=== PATIENT | female | born 1975 | race African-American/Black ===

== ENCOUNTER → 2020-08-29 | Outpatient (CLI) | payer OTHER | LOC: COL.RAD 12:50 | DX: D25.9 Leiomyoma of uterus, unspecified (principal); N83.201 Unspecified ovarian cyst, right side ==

== ENCOUNTER → 2020-10-13 | Outpatient (CLI) | payer OTHER | LOC: MC.RAD 14:01 | DX: Z12.31 Encounter for screening mammogram for malignant neoplasm of breast (principal); R92.0 Mammographic microcalcification found on diagnostic imaging of breast ==

== ENCOUNTER → 2020-10-25 | Outpatient (CLI) | payer OTHER | LOC: MC.RAD 13:51 | DX: R92.0 Mammographic microcalcification found on diagnostic imaging of breast (principal) ==

== ENCOUNTER → 2020-11-02 | Outpatient (CLI) | payer OTHER | LOC: MC.RAD 09:59 | DX: Z98.82 Breast implant status (principal); R92.0 Mammographic microcalcification found on diagnostic imaging of breast ==